=== PATIENT | male | born 1960 | race Caucasian/White ===

== ENCOUNTER 2017-08-22 15:40 | Emergency (ER) | END 2017-08-23 00:13 | disposition home or self-care (01) ==

== ENCOUNTER 2017-09-05 22:38 | Emergency (ER) | END 2017-09-06 06:30 | disposition home or self-care (01) ==

== ENCOUNTER 2017-11-18 23:28 | Inpatient (IN) | END 2017-11-22 19:00 | disposition home or self-care (01) | DRG 694 ==

== ENCOUNTER 2018-01-10 14:47 | Observation (INO) | END 2018-01-12 18:40 | disposition home or self-care (01) ==